=== PATIENT | male | born 1965 | race Caucasian/White ===

== ENCOUNTER 2018-07-21 12:41 | Emergency (ER) | payer OTHER ==
[~2018-07-21] VITALS: Ht 188 cm; Wt 81.7 kg
[~2018-07-21 12:41] MED LIST: BENICAR40 MG PO; CARDIZEM CD240 MG PO; CLARITIN10 MG PO; DOXYCYCLINE 10100 MG PO; LORTABELXR PO; TRAMADOL 50 MG50 MG PO
[2018-07-21] MEDS ORDERED: PREDNISONE 20 M20 M1 PO (13:54)
[2018-07-21 14:12] VITALS: BP 155/88
== END 2018-07-21 14:13 | disposition home or self-care (01) ==
LOC: M.ERS 12:41
DX: T78.3XXA Angioneurotic edema, initial encounter (principal); Z88.1 Allergy status to other antibiotic agents; Z88.0 Allergy status to penicillin

== ENCOUNTER → 2020-03-03 | Outpatient (CLI) | payer OTHER ==
[~2020-03-03] MED LIST changes: +PREDNISONE 20 M20 M1 PO; +THERA M PLUS T1 EAC2 PO
== END ==
LOC: M.CT 16:00
DX: S00.03XA Contusion of scalp, initial encounter (principal); G31.9 Degenerative disease of nervous system, unspecified; W19.XXXA Unspecified fall, initial encounter; W22.8XXA Striking against or struck by other objects, initial encounter; Y93.89 Activity, other specified; Y92.89 Other specified places as the place of occurrence of the external cause; Y99.8 Other external cause status

== ENCOUNTER 2020-03-05 15:00 | Inpatient (IN) | payer OTHER ==
[~2020-03-05] VITALS: Ht 185.4 cm; Wt 74.8 kg
[~2020-03-05 15:00] MED LIST changes: -THERA M PLUS T1 EAC2 PO
[2020-03-05 15:04] VITALS: BP 139/83
[2020-03-05 15:35] LABS: ABSOLUTE EOSINOPHILS 0.2 thou/uL (0.0-0.7); ABSOLUTE LYMPHOCYTES 0.9 thou/uL (0.8-5.3); ABSOLUTE MONOCYTES 0.6 thou/uL (0.0-1.2); ABSOLUTE NEUTROPHILS 1.9 thou/uL (1.6-8.1); BASOPHILS 1.2 %; EOSINOPHILS 4.2 %; HEMATOCRIT 35.7 % (42.0-52.0); LYMPHOCYTES 25.4 %; MCH 36.7 pg (26.0-34.0); MCHC 36.4 g/dL (28.0-37.0); MONOCYTES 16.2 %; MPV 7.4 fl. (7.2-11.1); NUCLEATED RBCS 0 /100WBC; PLATELET COUNT* 142 thou/uL (150-400); RBC 3.53 mil/uL (4.50-6.00); WBC 3.6 thou/uL (4.0-11.0)
[2020-03-05 15:39] LABS: CALCIUM 8.7 mg/dL (8.5-10.1); CREATININE 0.9 mg/dL (0.6-1.3)
[2020-03-05 15:40] LABS: POTASSIUM 1.9 mmol/L (3.5-5.1)
[2020-03-05 15:43] LABS: ALBUMIN 4.7 g/dL (3.4-5.0); MAGNESIUM 2.1 mg/dL (1.8-2.4); TOTAL BILIRUBIN 1.2 mg/dL (<0.1-1.0); TOTAL PROTEIN 7.9 g/dL (6.4-8.2)
[2020-03-05 15:50] LABS: PROTIME 10.5 Seconds (9.20-11.50)
[2020-03-05 17:20] VITALS: BP 115/77
[2020-03-05 17:35] VITALS: BP 116/75
[2020-03-05 20:00] VITALS: BP 113/76
[2020-03-06] VITALS: BP 124/75
[2020-03-06 04:00] VITALS: BP 118/73
[2020-03-06 04:22] LABS: HEMATOCRIT 31.3 % (42.0-52.0); HEMOGLOBIN 11.3 gm/dL (14.0-18.0); MCH 36.5 pg (26.0-34.0); MCHC 36.1 g/dL (28.0-37.0); MCV 101.1 fL (80.0-100.0); MPV 7.6 fl. (7.2-11.1); RBC 3.1 mil/uL (4.50-6.00); WBC 2.9 thou/uL (4.0-11.0)
[2020-03-06 04:37] LABS: ALBUMIN 3.9 g/dL (3.4-5.0); CREATININE 0.7 mg/dL (0.6-1.3); TOTAL BILIRUBIN 1.1 mg/dL (<0.1-1.0); TOTAL PROTEIN 6.8 g/dL (6.4-8.2)
[2020-03-06 08:00] VITALS: BP 123/90
--- NOTE | 2020-03-06 08:07 | EKG ---
[place] [address] ELECTROCARDIOGRAM REPORT Name: OSITO RENTERIA Room: [address] ADM IN M.R.#: [id number] Admission: 03/05/20 Attend Phys: Osito Zepeda, Discharge: Date of : 65 Date of Service: 03/05/20 1506 Report #: [id number] THIS REPORT FOR: //name// [facility] ED Test Date: 2020-03-05 Test Time: 15:06:37 Pat Name: OSITO RENTERIA Department: Room: [facility] Gender: M Informatics Pharmacist: beverley : 1965 Requested By: Reggie Pemberton Order Number: [id number] MD: Guzman Colon Measurements Intervals [place] Rate: 87 P: 86 [place]: 138 QRS: 29 QRSD: 123 T: 3 QT: 507 QTc: 610 Interpretive Statements Sinus rhythm Nonspecific intraventricular conduction delay Nonspecific repol abnormality, diffuse leads, consider ischemia No previous ECG available for comparison Electronically Signed On 03-06-2020 8:05:13 CDT by Guzman Colon [email or web address] <ELECTRONICALLY SIGNED> By: Guzman Colon MD, FACC 03/06/20 0805 1506 1506 Guzman Colon MD, [facility] /EPI
[2020-03-06 11:03] LABS: URINE BILIRUBIN NEGATIVE (Negative); URINE BLOOD NEGATIVE (Negative); URINE CLARITY CLEAR; URINE COLOR YELLOW; URINE GLUCOSE-RANDOM NEGATIVE (Negative); URINE KETONES 1+ (Negative); URINE LEUKOCYTES NEGATIVE (Negative); URINE NITRITE NEGATIVE (Negative); URINE PROTEIN NEGATIVE (Negative)
[2020-03-06 11:08] LABS: URINE POTASSIUM-RANDOM 6.9 mmol/L
[2020-03-06 11:57] VITALS: BP 93/64
[2020-03-06 16:00] VITALS: BP 123/78
[2020-03-06 20:00] VITALS: BP 113/70
[2020-03-07] VITALS: BP 119/78; BP 133/88; BP 151/87
[2020-03-07 04:00] VITALS: BP 137/88
[2020-03-07 05:04] LABS: CALCIUM 8.6 mg/dL (8.5-10.1); CREATININE 0.8 mg/dL (0.6-1.3); MAGNESIUM 1.9 mg/dL (1.8-2.4); POTASSIUM 3.4 mmol/L (3.5-5.1)
[2020-03-07 08:00] VITALS: BP 132/87
[2020-03-07] MEDS ORDERED: THERA M PLUS T1 EAC2 PO ×2 (10:22)
[2020-03-07 11:05] VITALS: BP 132/87
[2020-03-07 11:07] VITALS: BP 132/87
== END 2020-03-07 11:20 | disposition home or self-care (01) | DRG 641 ==
LOC: M.ERS 15:00 → M.2W 15:46 → M.TBA-ER 15:46 → M.2W 17:29
PROVIDERS: Emergency Medicine Emergency Medical Services; Physician Assistant; ADMIT Internal Medicine
DX: E87.6 Hypokalemia (principal); E44.1 Mild protein-calorie malnutrition; D61.818 Other pancytopenia; I49.9 Cardiac arrhythmia, unspecified; R55 Syncope and collapse; K70.9 Alcoholic liver disease, unspecified; S05.12XA Contusion of eyeball and orbital tissues, left eye, initial encounter; S05.11XA Contusion of eyeball and orbital tissues, right eye, initial encounter; W18.39XA Other fall on same level, initial encounter; F10.10 Alcohol abuse, uncomplicated; Y90.9 Presence of alcohol in blood, level not specified; Y93.89 Activity, other specified; Y99.8 Other external cause status; Y92.89 Other specified places as the place of occurrence of the external cause; Z79.899 Other long term (current) drug therapy; Z68.21 Body mass index [BMI] 21.0-21.9, adult; Z88.8 Allergy status to other drugs, medicaments and biological substances; Z91.048 Other nonmedicinal substance allergy status